=== PATIENT | male | born 2000 | race Hispanic/Latino ===

== ENCOUNTER 2018-09-13 18:41 | Emergency (ER) | payer SELFPAY ==
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
[2018-09-13] MEDS ORDERED: Lidocaine 1% w/Epinephrine 1:100K 20 ML VIAL ONE (20:03)
== END 2018-09-13 21:22 | disposition home or self-care (01) ==
LOC: ERS 18:41
DX: S01.81XA Laceration without foreign body of other part of head, initial encounter (principal); V43.53XA Car driver injured in collision with pick-up truck in traffic accident, initial encounter
CPT/HCPCS: 12011; 70450; 71045; 72125; G0390; J2001

== ENCOUNTER 2018-09-18 20:20 | Emergency (ER) | payer SELFPAY | END 2018-09-18 22:04 | disposition home or self-care (01) | LOC: ERS 20:20 | DX: S01.81XD Laceration without foreign body of other part of head, subsequent encounter (principal); X58.XXXD Exposure to other specified factors, subsequent encounter ==

== ENCOUNTER 2019-04-10 13:04 | Emergency (ER) | payer OTHER ==
[2019-04-10] MEDS ORDERED: Ketorolac Tromethamine 60 MG/2 ML VIAL ONE (13:51)
== END 2019-04-10 14:20 | disposition home or self-care (01) ==
LOC: ERS 13:04
DX: M62.830 Muscle spasm of back (principal); V89.2XXA Person injured in unspecified motor-vehicle accident, traffic, initial encounter
CPT/HCPCS: 96372; 99283; J1885